=== PATIENT | female | born 1990 | race Native Hawaiian/Other Pacific Islander ===

== ENCOUNTER 2018-12-03 10:15 | Day surgery (SDC) | payer BC ==
[2018-12-02 12:07] VITALS: BMI 34.4
[2018-12-03] MEDS ORDERED: Midazolam 2 MG/2 ML VIAL ONE (13:02)
[2018-12-03] MEDS ORDERED: Propofol 10 mg/ml Inj (20 ML) ONE (13:02)
[2018-12-03] MEDS ORDERED: Strong Iodine Topical Sol. 5%-10% ONE (13:03)
[2018-12-03] MEDS ORDERED: Lidocaine Hydrochloride 5 ML INJ ONE (13:12)
[2018-12-03] MEDS ORDERED: Dexamethasone 4 mg/1 ml ONE (13:31)
[2018-12-03] MEDS ORDERED: ACETIC ACID 5% EXT ONE (13:45)
[2018-12-03] MEDS ORDERED: HYDROmorphone 0.5 mg/0.5 ml ISec IVP PRN (14:49)
[2018-12-03 15:20] VITALS: BP 123/70; PULSE 75; RESP 18; TEMP 98; O2SAT 100
--- NOTE | 2018-12-04 06:13 | OP ---
PROCEDURE DATE: 12/03/2018 SURGEON: Luiza Love MD SURVIVAL EQUIPMENT REPAIRER: None. TYPE OF ANESTHESIA: General LMA. PREOPERATIVE DIAGNOSES: 1. Cervical intraepithelial dysplasia,HENRIK 2. 2. Abnormal Papanicolaou smear. POSTOPERATIVE DIAGNOSES: 1. Cervical intraepithelial dysplasia, HENRIK 2. 2. Abnormal Papanicolaou smear. PROCEDURES PERFORMED: Loop electro-excisional cauterization procedure, endocervical curettage. ESTIMATED BLOOD LOSS: 5 mL. BLOOD PRODUCTS: None. COMPLICATIONS: None. OPERATIVE FINDINGS: Anteverted 8-week size uterus, acetoacetic acid applied to cervix, large loops used . DESCRIPTION OF PROCEDURE: The patient was taken to the operating room where she was given general anesthesia. Once it was found to be adequate, she was placed on the operating table in dorsal supine position with the legs supported using stirrups. The patient was prepped and draped in the usual sterile fashion. A time-out confirmed correct patient and correct procedure. Bimanual exam was performed with the above-mentioned findings. Da Silva retractor was placed on the anterior and posterior fornix of the vagina. The cervix was adequately visualized. Acetoacetic acid was applied to the entire cervical os. Following areas of uptake were noted, a large electro-excisional cautery was used with Bovie settings of 40/40 and the endocervical canal using a large loop . A small loop was then used to obtain the endocervical canal. The endocervical canal area was then carefully cauterized, and the endocervical curettage was performed, and the uterine canal was found, and picture was taken. The uterine area was cauterized with with good hemostasis noted. All instruments were removed. At the end of the procedure, all needles, sponge, and instrument counts were noted to be correct x2. The patient tolerated the procedure well and was transferred to the recovery room in stable condition. Luiza Love MD
== END 2018-12-03 16:32 | disposition home or self-care (01) ==
LOC: C.SDS 10:15
PROVIDERS: ATTEND Obstetrics & Gynecology
DX: N87.1 Moderate cervical dysplasia (principal)
CPT/HCPCS: 57522; 88305; J1885; J2250; J2405; J2704; J3010